=== PATIENT | female | born 1990 | race Caucasian/White ===

== ENCOUNTER 2018-10-09 15:18 | Observation (INO) | payer SELFPAY ==
[2018-10-09] MEDS ORDERED: NORMAL SALINE 1000 ML 1,000 ML IV ONE (15:37)
[2018-10-09] MEDS ORDERED: MORPHINE SULFATE 10 MG/ML INJ IV ONE ×2 (15:38→16:18)
[2018-10-09] MEDS ORDERED: ONDANSETRON HCL INJ/PF 4 MG/2 ML SDV IV ONE ×3 (15:38→23:44)
--- NOTE | 2018-10-09 15:39 | ER Document Report ---
ED Medical Screen (RME) - General Chief Complaint: Abdominal Pain Stated Complaint: ABDOMINAL PAIN Time Seen by Provider: 10/09/18 15:34 Notes: Patient is a 28-year-old female that presents to the emergency department for chief complaint of right-sided abdominal pain radiates towards the right flank, with nausea and vomiting, started this morning, she has suprapubic pain as well , and dysuria associated. ROS: Other than noted above, the 12 point review of systems was reviewed with the patient and were negative, all pertinent findings are included in the HPI. PHYSICAL EXAMINATION: Vital signs reviewed. GENERAL: Patient is crying out in pain HEAD: Atraumatic, normocephalic. EYES: Pupils equal round extraocular movements intact, conjunctiva are normal. ENT: Nares patent NECK: Normal range of motion CV: Heart rate tachycardic, regular rhythm LUNGS: No respiratory distress Musculoskeletal: Normal range of motion NEUROLOGICAL: Normal speech PSYCH: Patient crying out in pain MDM: Patient seen and examined for rapid initial assessment. Vital signs reviewed. A comprehensive ED assessment and evaluation of the patient, analysis of test results and completion of the medical decision making process will be conducted by additional ED providers. *Note is created using voice recognition software and may contain spelling, syntax or grammatical errors. TRAVEL OUTSIDE OF THE [place] IN LAST 30 DAYS: No Physical Exam - Vital signs Vitals: Temp Pulse Resp BP Pulse Ox 98.3 F 114 H 20 101/71 97 10/09/18 15:32 10/09/18 15:32 10/09/18 15:32 10/09/18 15:32 10/09/18 15:32 Course - Vital Signs Vital signs: Temp Pulse Resp BP Pulse Ox 98.3 F 114 H 20 101/71 97 10/09/18 15:32 10/09/18 15:32 10/09/18 15:32 10/09/18 15:32 10/09/18 15:32
--- NOTE | 2018-10-09 16:20 | ER Document Report ---
ED GI/ <VASHTIANURAGKAYODE - Last Filed: 10/09/18 23:46> - General Mode of Arrival: Ambulatory Information source: Patient TRAVEL OUTSIDE OF THE [place] IN LAST 30 DAYS: No - HPI Patient complains to provider of: Flank pain, Pelvic pain, Vomiting. No: , Vaginal discharge Onset: This morning Timing/Duration: Sudden Quality of pain: Sharp Pain Level: 5 Location: RLQ, Right flank Vaginal bleeding (Compared to normal period): None Sexual history: Active. denies: STD exposure Associated symptoms: Dysuria, Loss of appetite, Nausea, Vomiting. denies: Constipation, Diarrhea, Fever, Urinary hesitancy, Urinary frequency, Urinary retention, Vaginal discharge Exacerbated by: Movement Relieved by: Denies Similar symptoms previously: No Recently seen / treated by doctor: No <IRENE BOWEN - Last Filed: 10/11/18 15:26> - General Chief Complaint: Abdominal Pain Stated Complaint: ABDOMINAL PAIN Time Seen by Provider: 10/09/18 15:34 Notes: Patient presents complaining of a right lower quadrant abdominal pain and right flank pain that woke her up out of a sleep. Patient reports nausea and vomiting x4 episodes. Patient states she is only been comfortable when she is sat with her knees drawn up to her chest. Patient does report some dysuria symptoms. Patient denies any fever or diarrhea. Patient denies any vaginal bleeding or discharge. Patient only reports intercourse with women denies concerns about sexual transmitted infection (IRENE BOWEN) - Related Data Allergies/Adverse Reactions: Sulfa (Sulfonamide Antibiotics) Adverse Reaction (Severe, Verified 10/09/18 16: 53) Difficulty breathing Past Medical History - General Information source: Patient - Social History Smoking Status: Current Every Day Smoker Frequency of alcohol use: None Drug Abuse: None Occupation: none Family History: Reviewed & Not Pertinent Patient has suicidal ideation: No Patient has homicidal ideation: No Renal/ Medical History: Reports: Hx Ovarian Cysts. Denies: Hx Peritoneal Dialysis Surgical Hx: Negative <IRENE BOWEN - Last Filed: 10/11/18 15:26> Review of Systems - Review of Systems Constitutional: No symptoms reported. denies: Fever EENT: No symptoms reported Cardiovascular: No symptoms reported. denies: Chest pain Respiratory: No symptoms reported. denies: Cough, Short of breath Gastrointestinal: Abdominal pain, Nausea, Vomiting, Poor appetite. denies: Diarrhea, Constipation Genitourinary: Dysuria, Flank pain Female Genitourinary: No symptoms reported. denies: , Vaginal discharge , Vaginal bleeding Musculoskeletal: Back pain Skin: No symptoms reported Hematologic/Lymphatic: No symptoms reported Neurological/Psychological: No symptoms reported <ANDRÉS,IRENE - Last Filed: 10/11/18 15:26> Physical Exam <VASHTIANURAGKAYODE - Last Filed: 10/09/18 23:46> - General General appearance: Appears well, Alert In distress: None - HEENT Head: Normocephalic, Atraumatic Eyes: Normal Conjunctiva: Normal Nasal: Normal Mouth/Lips: Normal Mucous membranes: Normal Neck: Normal, Supple. No: Lymphadenopathy - Respiratory Respiratory status: No respiratory distress Chest status: Nontender Breath sounds: Normal. No: Rales, Rhonchi, Stridor, Wheezing Chest palpation: Normal - Cardiovascular Rhythm: Tachycardia Heart sounds: S1 appreciated, S2 appreciated Murmur: No - Abdominal Inspection: Normal Distension: No distension Bowel sounds: Normal Tenderness: McBurney's point, Guarding. No: Subramanian's sign Organomegaly: No organomegaly - Genitourinary External exam: Normal Speculum exam: Cervix closed, Vaginal discharge Vaginal bleeding: None Bimanuel exam: No: Cervical motion tender, Adnexal tenderness - Back Back: CVA tenderness - right - Extremities General upper extremity: Normal inspection, Normal strength General lower extremity: Normal inspection, Normal strength - Neurological Neuro grossly intact: Yes Cognition: Normal Naseem Coma Scale Eye Opening: Spontaneous [place] Coma Scale Verbal: Oriented [place] Coma Scale Motor: Obeys Commands Naseem Coma Scale Total: 15 - Psychological Associated symptoms: Normal affect, Normal mood - Skin Skin Temperature: Warm Skin Moisture: Dry Skin Color: Normal <IRENE BOWEN - Last Filed: 10/11/18 15:26> - Vital signs Vitals: Temp Pulse BP Pulse Ox 98.3 F 113 H 101/71 98 10/09/18 15:29 10/09/18 15:29 10/09/18 15:29 10/09/18 15:29 - Genitourinary Notes: Pelvic examination caused worsening of her right lower quadrant pain due to her positioning. Patient did not have any right adnexal pain or cervical motion tenderness. (IRENE BOWEN) Course - Laboratory Result Diagrams: 10/09/18 16:41 10/09/18 16:41 <KAYODE PÉREZ - Last Filed: 10/09/18 23:46> - Laboratory Result Diagrams: 10/10/18 05:19 10/10/18 05:19 - Diagnostic Test Radiology reviewed: Reports reviewed <IRENE BOWEN - Last Filed: 10/11/18 15:26> - Re-evaluation Re-evalutation: 10/09/18 18:[address] Vega who does agree to evaluate patient. Discussed patient 's diagnostic evaluation and location of her pain symptoms at this time. 10/09/18 19:18 Dr. Vega to bedside for examination. Gave patient option of repeat CT scan imaging, admission and observation, or going to the OR at this time. Patient states that she did not initially think of any sexually transmitted infection and denies any vaginal bleeding or discharge but would like to be tested at this time to rule that out. Dr. Vega states that he will recheck with patient and see how she is doing. The patient does not have any positive infection then he will likely take her to the OR. Report and handoff given to Kayode ELLIS (IRENE BOWEN) - Vital Signs Vital signs: Temp Pulse Resp BP Pulse Ox 97.7 F 80 16 146/84 H 100 10/11/18 03:08 10/11/18 03:08 10/11/18 03:08 10/11/18 03:08 10/11/18 03:08 - Laboratory Laboratory results interpreted by me: 10/09/18 10/09/18 16:15 16:41 Seg Neutrophils % 80.0 H Urine Protein 100 H Urine Ketones 80 H Urine Bilirubin SMALL H Urine Urobilinogen 2.0 H Discharge - Discharge Admitting Provider: Surgicalist Unit Admitted: Surgical Floor <KAYODE PÉREZ - Last Filed: 10/09/18 23:46> - Discharge Admitting Provider: Surgicalist Unit Admitted: Surgical Floor <IRENE BOWEN - Last Filed: 10/11/18 15:26> - Discharge Clinical Impression: Right lower quadrant pain Condition: Stable Disposition: ADMITTED OBSERVATION
[2018-10-09 16:38] LABS: APPEARANCE,URINE CLOUDY; BILIRUBIN,URINE SMALL (NEGATIVE); COLOR,URINE YELLOW; GLUCOSE, URINE NEGATIVE (NEGATIVE); KETONES,URINE 80 mg/dL (NEGATIVE); LEUKOCYTE ESTERASE,URINE NEGATIVE (NEGATIVE); NITRITE,URINE NEGATIVE (NEGATIVE); PROTEIN,URINE 100 mg/dL (NEGATIVE); URINE SPECIFIC GRAVITY 1.024
[2018-10-09 17:05] LABS: ABSOLUTE MONOCYTES (AUTO) 0.4 10^3/uL (0.1-1.4); ABSOLUTE NEUT (AUTO) 5.7 10^3/uL (1.7-8.2); BASOPHILS % (AUTO) 0.5 % (0-2); HEMATOCRIT 40.1 % (36.0-47.0); HEMOGLOBIN 14.2 g/dL (12.0-15.5); MEAN CORPUSCULAR HEMOGLOBIN 30.2 pg (27.0-33.4); MEAN CORPUSCULAR HGB CONC 35.3 g/dL (32.0-36.0); MEAN CORPUSCULAR VOLUME 86 fl (80-97); MONOCYTES % (AUTO) 5.5 % (3-13); PLATELET COUNT 178 10^3/uL (150-450); RED BLOOD COUNT 4.69 10^6/uL (3.72-5.28); RED CELL DISTRIBUTION WIDTH 13.3 % (11.5-14.0); TOTAL CELLS COUNTED % (AUTO) 100 %; WHITE BLOOD COUNT 7.1 10^3/uL (4.0-10.5)
[2018-10-09] MEDS ORDERED: NORMAL SALINE 1000 ML 1,000 ML IV PRN (17:06)
[2018-10-09 17:26] LABS: ALBUMIN 4.9 g/dL (3.5-5.0); ANION GAP 13 (5-19); ASPARTATE AMINO TRANSFERASE 29 U/L (14-36); BLOOD UREA NITROGEN 12 mg/dL (7-20); CALCIUM 10.2 mg/dL (8.4-10.2); CARBON DIOXIDE 23 mmol/L (22-30); CHLORIDE 106 mmol/L (98-107); GLUCOSE 110 mg/dL (75-110); POTASSIUM 4.4 mmol/L (3.6-5.0); SODIUM 141.5 mmol/L (137-145)
[2018-10-09 17:27] LABS: ALANINE AMINOTRANSFERASE 30 U/L (9-52); ALKALINE PHOSPHATASE 77 U/L (38-126); BILIRUBIN,DIRECT 0.3 mg/dL (0.0-0.4); LIPASE 28.9 U/L (23-300); TOTAL PROTEIN 8.2 g/dL (6.3-8.2)
--- NOTE | 2018-10-09 18:11 | RADIOLOGY REPORT (SQ) ---
EXAM DESCRIPTION: CT LTD RENAL STONE PROTOCOL ON COMPLETED DATE/TIME: 10/09/2018 5:58 pm REASON FOR STUDY: right flank pain COMPARISON: None. TECHNIQUE: CT scan of the abdomen and pelvis performed without intravenous or oral contrast. Images reviewed with lung, soft tissue, and bone windows. Reconstructed coronal and sagittal MPR images revi ewed. All images stored on PACS. All CT scanners at this facility use dose modulation, iterative reconstruction, and/or weight based d osing when appropriate to reduce radiation dose to as low as reasonably achievable (ALARA). [facility]: Dose Right [facility]: CareDose [facility]: Dose Right [facility]: Teradose 4D [facility]: [employer] RADIATION DOSE: CT Rad equipment meets quality standard of care and radiation dose reduction techniq ues were employed. CTDIvol: 1.8 mGy. DLP: 87 mGy-cm.mGy. LIMITATIONS: None. FINDINGS: LOWER CHEST: No significant findings. No nodules or infiltrates. NON-CONTRASTED LIVER, SPLEEN, ADRENALS: Evaluation limited by lack of IV contrast. No identified sign ificant masses. PANCREAS: No masses. No peripancreatic inflammatory changes. GALLBLADDER: No identified stones by CT criteria. No inflammatory changes to suggest cholecystitis. RIGHT KIDNEY AND URETER: No suspicious masses. Assessment limited by lack of IV contrast. No signif icant calcifications. No hydronephrosis or hydroureter. LEFT KIDNEY AND URETER: No suspicious masses. Assessment limited by lack of IV contrast. No signifi cant calcifications. No hydronephrosis or hydroureter. AORTA AND RETROPERITONEUM: No aneurysm. No retroperitoneal masses or adenopathy. BOWEL AND PERITONEAL CAVITY: No obvious masses or inflammatory changes. No free fluid. APPENDIX: Not visualized. PELVIS, BLADDER, AND ABDOMINAL WALL:No abnormal masses. No free fluid. Bladder normal. BONES: No significant findings. OTHER: No other significant finding. IMPRESSION: NO SIGNIFICANT OR ACUTE PROCESS IN THE ABDOMEN OR PELVIS. COMMENT: Quality ID # [id number]: Final reports with documentation of one or more dose reduction techniques (e.g., Automated exposure control, adjustment of the mA and/or kV according to patient size, use of iterative reconstruction technique) TECHNICAL DOCUMENTATION: JOB ID: [id number] [facility]- All Rights Reserved Reading location - IP/workstation name: [email or web address]
[2018-10-09] MEDS ORDERED: FENTANYL CITRATE INJ/PF 100 MCG/2 ML AMPUL IV ONE ×2 (18:48→22:30)
[2018-10-09 19:48] LABS: BACTERIA (WET MOUNT) 4+ BACTERIA SEEN; EPITHELIALS (WET MOUNT) 3+ EPITHELIALS SEEN; T.VAGINALIS (WET MOUNT) NO TRICHOMONAS SEEN; WBCS (WET MOUNT) 2+ WBCS SEEN; YEAST (WET MOUNT) NO YEAST SEEN
[2018-10-09 21:13] LABS: CHLAM PCR NOT DETECTED (NOT DETECT); GON PCR NOT DETECTED (NOT DETECT)
--- NOTE | 2018-10-09 23:56 | PDOC H&P ---
History of Present Illness Patient complains of: Right lower quadrant abdominal pain History of Present Illness: LUH AYO is a 28 year old female with a 1 day history of right lower quadrant abdominal pain. It began today, and has worsened throughout the day. The patient reports pain so significant that she cannot stand it anymore. Her pain is 10 out of 10. It is worse with palpation. It is sharp and stabbing. Nothing makes it better. The pain does not radiate. She denies dysuria. She has had subjective fevers and chills. She denies chest pain, shortness of breath, headache, blurry vision, malaise, fatigue, nausea, vomiting, melena, hematochezia, hematemesis, dizziness. Past Surgical History Past Surgical History: Reports: None Social History Smoking Status: Current Every Day Smoker Family History Family History: Reviewed & Not Pertinent Parental Family History Reviewed: Yes Children Family History Reviewed: Yes Sibling(s) Family History Reviewed.: Yes Medication/Allergy Allergies/Adverse Reactions: Sulfa (Sulfonamide Antibiotics) Adverse Reaction (Severe, Verified 10/09/18 16: 53) Difficulty breathing Review of Systems Constitutional: PRESENT: chills. ABSENT: fatigue, headache(s), weakness Eyes: ABSENT: visual disturbances Ears: ABSENT: hearing changes Cardiovascular: ABSENT: chest pain, palpitations Respiratory: ABSENT: cough, dyspnea Gastrointestinal: PRESENT: abdominal pain. ABSENT: diarrhea, heartburn, nausea , vomiting Integumentary: ABSENT: pruritus, rash Neurological: ABSENT: confusion, convulsions, dizziness Psychiatric: ABSENT: anxiety, depression Endocrine: ABSENT: cold intolerance, heat intolerance Hematologic/Lymphatic: ABSENT: easy bleeding, easy bruising Physical Exam Vital Signs: Temp Pulse Resp BP Pulse Ox 98.3 F 114 H 20 115/99 H 100 10/09/18 15:32 10/09/18 15:32 10/09/18 15:32 10/09/18 22:30 10/09/18 22:30 Intake & Output 10/08/18 10/09/18 10/10/18 06:59 06:59 06:59 Intake Total 1000 Balance 1000 Weight 43.2 kg General appearance: PRESENT: mild distress - Nominal pain Head exam: PRESENT: atraumatic, normocephalic Eye exam: PRESENT: EOMI, PERRLA. ABSENT: scleral icterus Mouth exam: PRESENT: moist, neck supple Neck exam: ABSENT: meningismus, tenderness, thyromegaly, tracheal deviation Respiratory exam: ABSENT: chest wall tenderness Cardiovascular exam: PRESENT: RRR Pulses: PRESENT: normal radial pulses GI/Abdominal exam: PRESENT: guarding, soft, tenderness - Right lower quadrant. ABSENT: distended Rectal exam: PRESENT: deferred Extremities exam: ABSENT: clubbing Neurological exam: PRESENT: alert, awake, oriented to person, oriented to place , oriented to time, oriented to situation Psychiatric exam: ABSENT: agitated, anxious, depressed Focused psych exam: ABSENT: delusional Skin exam: ABSENT: cyanosis, erythema, jaundice Results Laboratory Results: 10/09/18 16:41 10/09/18 16:41 10/09/18 10/09/18 10/09/18 16:15 16:41 16:41 WBC 7.1 RBC 4.69 Hgb 14.2 Hct 40.1 MCV 86 MCH 30.2 MCHC 35.3 RDW 13.3 Plt Count 178 Seg Neutrophils % 80.0 H Lymphocytes % 14.0 Monocytes % 5.5 Eosinophils % 0.0 Basophils % 0.5 Absolute Neutrophils 5.7 Absolute Lymphocytes 1.0 Absolute Monocytes 0.4 Absolute Eosinophils 0.0 Absolute Basophils 0.0 Sodium 141.5 Potassium 4.4 Chloride 106 Carbon Dioxide 23 Anion Gap 13 BUN 12 Creatinine 0.58 Est GFR ( Amer) > 60 Est GFR (Non-Af Amer) > 60 Glucose 110 Calcium 10.2 Total Bilirubin 1.0 AST 29 ALT 30 Alkaline Phosphatase 77 Total Protein 8.2 Albumin 4.9 Lipase 28.9 Serum HCG, Qual Urine Color YELLOW Urine Appearance CLOUDY Urine pH 7.0 Ur Specific [place] 1.024 Urine Protein 100 H Urine Glucose (UA) NEGATIVE Urine Ketones 80 H Urine Blood NEGATIVE Urine Nitrite NEGATIVE Ur Leukocyte Esterase NEGATIVE Urine WBC (Auto) 8 Urine RBC (Auto) 2 10/09/18 16:41 WBC RBC Hgb Hct MCV MCH MCHC RDW Plt Count Seg Neutrophils % Lymphocytes % Monocytes % Eosinophils % Basophils % Absolute Neutrophils Absolute Lymphocytes Absolute Monocytes Absolute Eosinophils Absolute Basophils Sodium Potassium Chloride Carbon Dioxide Anion Gap BUN Creatinine Est GFR ( Amer) Est GFR (Non-Af Amer) Glucose Calcium Total Bilirubin AST ALT Alkaline Phosphatase Total Protein Albumin Lipase Serum HCG, Qual NEGATIVE Urine Color Urine Appearance Urine pH Ur Specific [place] Urine Protein Urine Glucose (UA) Urine Ketones Urine Blood Urine Nitrite Ur Leukocyte Esterase Urine WBC (Auto) Urine RBC (Auto) Impressions: Limited or Localized CT 10/09/18 15:37 IMPRESSION: NO SIGNIFICANT OR ACUTE PROCESS IN THE ABDOMEN OR PELVIS. Assessment & Plan - Diagnosis (1) Right lower quadrant pain Is this a current diagnosis for this admission?: Yes - Plan Summary Plan Summary: This is a 28-year-old female with right lower quadrant pain. Her white count is normal, however she does have a left shift. The patient has pain over McBurney's point. I have offered the patient a repeat CT scan, but she has refused. I will admit the patient for observation. If the patient does not see significant improvement over the next 6 hours, she may require appendectomy. This is been discussed with the patient at length. I will perform another abdominal exam in several hours.
[2018-10-10] MEDS: ONDANSETRON HCL INJ/PF 4 MG/2 ML SDV IV PRN ×5 (00:14→18:24)
[2018-10-10] MEDS: DEXTROSE 5%-LACTATED RINGERS 1,000 ML IV PRN ×2 (01:30→12:55)
[2018-10-10] MEDS: MORPHINE SULFATE 10 MG/ML INJ IV PRN ×5 (01:31→20:52)
[2018-10-10 06:51] LABS: ABSOLUTE LYMPHOCYTES (AUTO) 2.2 10^3/uL (0.5-4.7); ABSOLUTE MONOCYTES (AUTO) 0.7 10^3/uL (0.1-1.4); ABSOLUTE NEUT (AUTO) 6.2 10^3/uL (1.7-8.2); BASOPHILS % (AUTO) 0.5 % (0-2); HEMATOCRIT 36.7 % (36.0-47.0); HEMOGLOBIN 12.7 g/dL (12.0-15.5); LYMPHOCYTES % (AUTO) 24.3 % (13-45); MEAN CORPUSCULAR HEMOGLOBIN 30.1 pg (27.0-33.4); MEAN CORPUSCULAR HGB CONC 34.8 g/dL (32.0-36.0); MEAN CORPUSCULAR VOLUME 87 fl (80-97); MONOCYTES % (AUTO) 8.1 % (3-13); PLATELET COUNT 171 10^3/uL (150-450); RED BLOOD COUNT 4.23 10^6/uL (3.72-5.28); RED CELL DISTRIBUTION WIDTH 13.4 % (11.5-14.0); SEGMENTED NEUTROPHILS % (AUTO) 67.1 % (42-78); TOTAL CELLS COUNTED % (AUTO) 100 %; WHITE BLOOD COUNT 9.2 10^3/uL (4.0-10.5)
[2018-10-10 08:27] LABS: ANION GAP 10 (5-19); BLOOD UREA NITROGEN 10 mg/dL (7-20); CALCIUM 9.2 mg/dL (8.4-10.2); CARBON DIOXIDE 22 mmol/L (22-30); CHLORIDE 111 mmol/L (98-107); GLUCOSE 104 mg/dL (75-110)
[2018-10-10] MEDS: KETOROLAC TROMETHAMINE INJ/PF 30 MG/1 ML SDV IV PRN ×2 (08:51→18:18)
--- NOTE | 2018-10-10 12:25 | RADIOLOGY REPORT (SQ) ---
EXAM DESCRIPTION: CT ABD/PELVIS WITH IV ORAL COMPLETED DATE/TIME: 10/10/2018 11:58 am REASON FOR STUDY: r/o acute appendicitis COMPARISON: Previous day. TECHNIQUE: CT scan of the abdomen and pelvis performed with intravenous and oral contrast using sadia bobbi scanning technique with dynamic intravenous contrast injection. Images reviewed with lung, soft t issue, and bone windows. Reconstructed coronal and sagittal MPR images reviewed. Delayed images for e valuation of the urinary system also acquired. All images stored on PACS. All CT scanners at this facility use dose modulation, iterative reconstruction, and/or weight based d osing when appropriate to reduce radiation dose to as low as reasonably achievable (ALARA). [facility]: Dose Right [facility]: CareDose [facility]: Dose Right [facility]: Teradose 4D [facility]: [employer] CONTRAST TYPE AND DOSE: contrast/concentration: Isovue 370.00 mg/ml; Total Contrast Delivered: 45.0 ml; Total Saline Delivered: 65.0 ml RENAL FUNCTION: GFR > 60. RADIATION DOSE: CT Rad equipment meets quality standard of care and radiation dose reduction techniq ues were employed. CTDIvol: 2.1 - 3.0 mGy. DLP: 320 mGy-cm. . LIMITATIONS: None. FINDINGS: LOWER CHEST: No significant findings. No nodules or infiltrates. LIVER: Normal size. No masses. No dilated ducts. SPLEEN: Normal size. No focal lesions. PANCREAS: No masses. No significant calcifications. No adjacent inflammation or peripancreatic fluid collections. Pancreatic duct not dilated. GALLBLADDER: No identified stones by CT criteria. No inflammatory changes to suggest cholecystitis. ADRENAL GLANDS: No significant masses or asymmetry. RIGHT KIDNEY AND URETER: No solid masses. No significant calcifications. No hydronephrosis or hyd roureter. LEFT KIDNEY AND URETER: No solid masses. No significant calcifications. No hydronephrosis or hydr oureter. AORTA AND VESSELS: No aneurysm. No dissection. Renal arteries, SMA, celiac without stenosis. RETROPERITONEUM: No retroperitoneal adenopathy, hemorrhage or masses. BOWEL AND PERITONEAL CAVITY: No obstruction. No visualized masses. No free fluid. No inflammatory ch anges or thickening of bowel wall. APPENDIX: Normal. PELVIS: No significant masses. Normal bladder. No free fluid. ABDOMINAL WALL: No masses. No hernias. BONES: No significant or acute findings. OTHER: No other significant finding. IMPRESSION: NO SIGNIFICANT OR ACUTE FINDINGS IN THE ABDOMEN OR PELVIS. TECHNICAL DOCUMENTATION: JOB ID: [id number] Quality ID # [id number]: Final reports with documentation of one or more dose reduction techniques (e.g., Au tomated exposure control, adjustment of the mA and/or kV according to patient size, use of iterative reconstruction technique) 2010 [employer]- All Rights Reserved Reading location - IP/workstation name: [email or web address] [id number]
--- NOTE | 2018-10-10 12:51 | RADIOLOGY REPORT (SQ) ---
EXAM DESCRIPTION: U/S ABDOMEN LIMITED W/O DOP COMPLETED DATE/TIME: 10/10/2018 12:35 pm REASON FOR STUDY: r/o gallstones COMPARISON: Abdominal CT scan dated 10/10/2018 TECHNIQUE: Dynamic and static grayscale images acquired of the abdomen and recorded on PACS. Additio nal selected color Doppler and spectral images recorded. LIMITATIONS: Study is limited due to overlying bowel gas. FINDINGS: PANCREAS: No masses. Visualized pancreatic duct normal caliber. Pancreatic tail could no t be visualized due to overlying bowel gas. LIVER: No masses. Echotexture normal. LIVER VASCULATURE: Normal directional flow of the main portal vein. GALLBLADDER: No stones. Normal wall thickness. No pericholecystic fluid. ULTRASOUND-DETECTED CARDOSO'S SIGN: Negative. INTRAHEPATIC DUCTS AND COMMON DUCT: CBD and intrahepatic ducts normal caliber. No filling defects. INFERIOR VENA CAVA: Normal flow. AORTA: Only the proximal abdominal aorta could be visualized due to overlying bowel gas. No aneurysm is identified. RIGHT KIDNEY: 10.2 cm in length. . Normal echogenicity. No solid or suspicious masses. No hydroneph rosis. No calcifications. PERITONEAL AND RIGHT PLEURAL SPACE: No ascites or effusions. OTHER: No other significant findings. IMPRESSION: Somewhat limited study as noted above. No significant intra-abdominal abnormalities wer e identified. TECHNICAL DOCUMENTATION: JOB ID: [id number] [employer]- All Rights Reserved Reading location - IP/workstation name: [email or web address]
--- NOTE | 2018-10-10 14:59 | RADIOLOGY REPORT (SQ) ---
EXAM DESCRIPTION: U/S NON OB PEL W/DOPPLER COMPLETED DATE/TIME: 10/10/2018 2:38 pm REASON FOR STUDY: RULE OUT OVARIAN CYST COMPARISON: Abdominal and pelvic CT scan dated 10/10/2018 TECHNIQUE: Dynamic and static grayscale images acquired of the pelvis via transabdominal approach an d recorded on PACS. Additional selected color Doppler and spectral images recorded. LIMITATIONS: None. FINDINGS: UTERUS: Contour normal. No mass. ENDOMETRIAL STRIPE: No focal or generalized thickening. No masses. CERVIX: No nabothian cysts. RIGHT OVARY AND DOPPLER: Normal size. Small follicular cyst is identified measuring 1.4 x 0.8 x 0.9 cm. Normal arterial vascular flow without evidence for torsion. LEFT OVARY AND DOPPLER: Left ovary was not visualized. FREE FLUID: None noted. OTHER: No other significant finding. MEASUREMENTS: UTERUS: 5.8 x 4.1 x 2.1 cm ENDOMETRIAL STRIPE: 8 mm RIGHT OVARY: 2.0 x 2.0 x 2.0 cm LEFT OVARY: Not visualized IMPRESSION: Small 1.4 cm follicular cyst in the right ovary. No other significant pelvic abnormalit ies were identified. Other findings as noted above TECHNICAL DOCUMENTATION: JOB ID: [id number] [employer]- All Rights Reserved Rev-03/15 Reading location - IP/workstation name: [email or web address]
--- NOTE | 2018-10-10 21:46 | PDOC PROGRESS REPORT ---
Subjective Progress Note for:: 10/10/18 Subjective:: abdominal pains with nausea Reason For Visit: RIGHT LOWER QUADRANT ABDOMINAL PAIN Physical Exam Vital Signs: Temp Pulse Resp BP Pulse Ox 98.1 F 90 16 110/78 98 10/10/18 19:19 10/10/18 19:19 10/10/18 19:19 10/10/18 19:19 10/10/18 19:19 Intake & Output 10/09/18 10/10/18 10/11/18 06:59 06:59 06:59 Intake Total 1000 1000 Output Total 0 Balance 1000 1000 Weight 42.2 kg Exam: abdomen is soft with tenderness at the RLQ Results Laboratory Results: 10/10/18 05:19 10/10/18 05:19 10/10/18 10/10/18 05:19 05:19 WBC 9.2 RBC 4.23 Hgb 12.7 Hct 36.7 MCV 87 MCH 30.1 MCHC 34.8 RDW 13.4 Plt Count 171 Seg Neutrophils % 67.1 Lymphocytes % 24.3 Monocytes % 8.1 Eosinophils % 0.0 Basophils % 0.5 Absolute Neutrophils 6.2 Absolute Lymphocytes 2.2 Absolute Monocytes 0.7 Absolute Eosinophils 0.0 Absolute Basophils 0.0 Sodium 143.0 Potassium 4.0 Chloride 111 H Carbon Dioxide 22 Anion Gap 10 BUN 10 Creatinine 0.53 Est GFR ( Amer) > 60 Est GFR (Non-Af Amer) > 60 Glucose 104 Calcium 9.2 Impressions: Limited or Localized CT 10/09/18 15:37 IMPRESSION: NO SIGNIFICANT OR ACUTE PROCESS IN THE ABDOMEN OR PELVIS. Abdomen Ultrasound 10/10/18 00:00 IMPRESSION: Somewhat limited study as noted above. No significant intra- abdominal abnormalities were identified. Abdomen/Pelvis CT 10/10/18 00:00 IMPRESSION: NO SIGNIFICANT OR ACUTE FINDINGS IN THE ABDOMEN OR PELVIS. Pelvis Ultrasound 10/10/18 00:00 IMPRESSION: Small 1.4 cm follicular cyst in the right ovary. No other significant pelvic abnormalities were identified. Other findings as noted above Assessment & Plan - Diagnosis (1) Right ovarian cyst Is this a current diagnosis for this admission?: Yes - Time Time Spent with patient: 25-34 minutes - Inpatient Certification Medical Necessity: Need For IV Fluids, Need for Pain Control - Plan Summary Plan Summary: All her work up ie CT scan abdomen(normal appendix) Normal ultrasound gallbladder. Only finding is a right ovarian cyst. D/W Dr Kang the wet machine cutter pulmonologist who saw patient today.He feels that patient can be discharged on po Motrin and she can be followed in the [facility] clinic Will put back patient on diet, She wants to have something for nausea when discharged Will discharge in am.
[2018-10-10 23:43] VITALS: BP 146/84
--- NOTE | 2018-10-10 23:57 | CONSULTATION REPORT E ---
Consultation Report NAME: LUH YAO : 1990 AGE: 28Y DATE: 10/10/2018 ROOM: 419 A TO: Arvind AUGUSTINE M.D. FROM: DANIELLA MALHOTRA M.D. Requesting Physician HISTORY OF PRESENT ILLNESS: This is a 28-year-old, zero, currently on no control with last menstrual period approximately 09/17. She reports having regular periods and has not missed any. She stated she had acute onset of right lower quadrant pain yesterday which has gotten progressively worse. The patient denies any change in bowel or bladder habits. Denies any fever or chills. No discharge, itching, or burning. PHYSICAL EXAMINATION: The physical exam is deferred. ASSESSMENT: Right lower quadrant pain. PLAN: For a diagnostic ultrasound. If the ultrasound is negative, in view of her normal white count would discharge her on p.o. ibuprofen and have her follow up in either our office or with her PCM. At this time unless there was a torsion or some indication of other pathology the patient is able to be discharged. DICTATING PHYSICIAN: Arvind AUGUSTINE M.D. [id number] PHY#: [id number] ID: [id number] JOB#: [id number] ACCT: [id number] cc:Arvind AUGUSTINE M.D. >
[2018-10-11] MEDS: DEXTROSE 5%-LACTATED RINGERS 1,000 ML IV PRN (00:31)
[2018-10-11] MEDS: ONDANSETRON HCL INJ/PF 4 MG/2 ML SDV IV PRN (01:50)
[2018-10-11] MEDS: KETOROLAC TROMETHAMINE INJ/PF 30 MG/1 ML SDV IV PRN (02:30)
[2018-10-11] MEDS ORDERED: ONDANSETRON HCL INJ/PF 4 MG/2 ML SDV IV PRN (03:37)
[2018-10-11] MEDS: IBUPROFEN 400 MG TABLET PO PRN ×2 (03:46→09:10)
[2018-10-11] MEDS ORDERED: KETOROLAC TROMETHAMINE INJ/PF 30 MG/1 ML SDV IV PRN (04:00)
[2018-10-11] MEDS ORDERED: ONDANSETRON 4 MG TAB.RAPDIS SL ONE (09:30)
== END 2018-10-11 09:25 | disposition home or self-care (01) ==
LOC: ER 15:18 → EH 23:55 → 4W 10-10 02:54
PROVIDERS: ADMIT Emergency Medicine; ATTEND Emergency Medicine
DX: R10.31 Right lower quadrant pain (principal); R50.9 Fever, unspecified; F17.200 Nicotine dependence, unspecified, uncomplicated; N83.01 Follicular cyst of right ovary; R11.2 Nausea with vomiting, unspecified; R10.2 Pelvic and perineal pain; R30.0 Dysuria; R63.0 Anorexia; M54.9 Dorsalgia, unspecified; R00.0 Tachycardia, unspecified; Z53.29 Procedure and treatment not carried out because of patient's decision for other reasons
CPT/HCPCS: 96376; 99285; 96361; 96374; 96375; 36415 ×2; 87086; 87210; 83690; 84703; 85025 ×2; 80048; 80053; 81001; 87491; 87591; 76856; 76705; 93976; 76380; 74177; G0378 ×3; S0119; J3010; J3490; J1885 ×2; J2270 ×2; J2405 ×3; J7030